=== PATIENT | female | born 1945 | race Caucasian/White ===

== ENCOUNTER → 2017-06-09 | Outpatient (CLI) | payer MEDICARE, BC ==
--- NOTE | 2017-06-10 14:37 | MAM ---
Screening BILATERAL MAMMOGRAMS HISTORY: ANNUAL SCREENING. No personal nor first-order familial history of breast cancer COMPARISON: No prior mammograms available for comparison TECHNIQUE: Digital 2-D mammograms , and 3-D tomosynthesis,1 of both breasts were performed in CC and MLO orientations. Mammo CAD analysis also performed. FINDINGS: Scattered fibroglandular tissue identified in both breasts. Benign lymph nodes in left axilla. Benign microcalcifications scattered in both breasts. No obvious mass lesion or concerning microcalcifications or architectural distortion detected in either breast. IMPRESSION: No mammographic evidence of malignancy in either breast. BI-RADS: 2, benign findings. Follow-up: Annual surveillance recommended for bilateral breasts. Electronically signed by: Aj Baird MD 06/10/2017 2:36 PM CDT
== END ==
LOC: MAMMO 14:38
PROVIDERS: ATTEND Nurse Practitioner Family
DX: Z12.31 Encounter for screening mammogram for malignant neoplasm of breast (principal)